=== PATIENT | male | born 1945 | race Caucasian/White ===

== ENCOUNTER 2021-06-14 08:30 | Observation (INO) | payer OTHER, SELFPAY ==
[2021-06-14] VITALS (14 sets, daily range): BP systolic 133–180; BP diastolic 66–105; PULSE 57–96; RESP 14–20; TEMP 36.2–37; O2SAT 93–97; BMI 32.3
--- NOTE | 2021-06-14 08:40 | RAD_ITS ---
STUDY: X-RAY CHEST REASON FOR EXAM: Male, 75 years old. Shortness of breath. Syncope with nausea and vomiting. TECHNIQUE: Single AP portable view of the chest. COMPARISON: None. FINDINGS: EKG electrodes are seen. Possible 4.4 cm x 2.8 cm rounded nodule in the medial aspect of the right upper lobe. There is no demonstrated pleural abnormality. There is borderline cardiomegaly. Normal mediastinum and earle. Normal visualized pulmonary arteries. There is atherosclerotic calcification of the aortic arch with tortuosity. There are diffuse degenerative changes of the visualized thoracic spine. Normal visualized ribs, clavicles, and shoulders. There is no demonstrated abnormality of the visualized soft tissue structures of the upper abdomen. RAD/Chest 1 View (Portable) IMPRESSION: Proximal nodular density in the medial aspect of the right upper lobe. Electronically Signed: Kavon Bentley MD at 9:08 EST , Service support ,
--- NOTE | 2021-06-14 08:40 | EKG12_ITS ---
Test Reason : DIZZINESS Blood Pressure : / mmHG Vent. Rate : 090 BPM Atrial Rate : 091 BPM P-R Int : 204 ms QRS Dur : 096 ms QT Int : 416 ms P-R-T Axes : 059 -19 048 degrees QTc Int : 508 ms Normal sinus rhythm with PVC's Prolonged QT Abnormal ECG Confirmed by GABRIELA MAYORGA, ABRIL ([id number]), mapping editor ZAINAB KHAN ([id number]) on 06/17/2021 11:29:39 AM Referred By: Confirmed By:ABRIL OCHOA MD
--- NOTE | 2021-06-14 08:41 | CT_ITS ---
STUDY: CT BRAIN WITHOUT CONTRAST REASON FOR EXAM: Male, 75 years old. Dizziness. Nausea and vomiting. RADIATION DOSAGE (If Supplied By Facility): CTDIvol = ( 44.99 ) mGy, DLP = ( 829.85 ) mGycm TECHNIQUE: Transaxial CT imaging of the brain was performed without administration of intravenous contrast material. Individualized dose optimization techniques were used for this CT. COMPARISON: No relevant priors. FINDINGS: Normal soft tissue structures. Normal calvarium. There is mild cerebral atrophy with widening of the extra-axial spaces and ventricular dilatation. Normal white matter tracts of the cerebral hemispheres. Normal basal ganglia and thalami. Normal brainstem. Normal cerebellum. There is no intracranial hemorrhage. There are no findings of an acute ischemic infarction. Atherosclerotic plaque formation of the vertebral arteries as well as the basilar artery and cavernous portions of the internal carotid arteries bilaterally. Normal visualized paranasal sinuses. CT/Brain/Head without Contrast IMPRESSION: Chronic involutional changes of the brain. Electronically Signed: Kavon Bentley MD at 9:06 EST , Service support ,
[2021-06-14] MEDS: Ondansetron 4 MG/2 ML Vial IV ×2 (08:42→12:07)
--- NOTE | 2021-06-14 08:42 | EX.ED.DYSGE1 ---
HPI History of Present Illness Chief Complaint: Dizziness Informant: patient Narrative Narrative: 75-year-old male presenting with dizziness, nausea, vomiting. Patient states he woke up this morning and felt lightheaded and dizzy. He states he had unsteady gait and felt off balance. He states he stayed on the couch for 1 hour and started to feel slightly better. He then drove himself to his primary care physician's office for a routine scheduled visit. He states he had trouble getting into the primary care physician's office and had to hold on to keep from falling. In the waiting room he began vomiting and had several episodes of nonbloody emesis. EMS was called and patient was transported to the emergency department for evaluation. He denies chest pain or shortness of breath. Denies numbness or weakness. Denies vertigo. Denies vision or speech changes. Denies headache. Denies abdominal pain. He is vaccinated for Covid. Prior similar symptoms: No Recent Illness/Hospitalization: No PFSH PFS Medical History (Updated 06/14/21 @ 10:[address] Mariola Pereira MD) Cataract GERD (gastroesophageal reflux disease) Gout Hernia Hyperlipidemia Hypertension Kidney disease Prostate cancer Home Medications amlodipine 10 mg PO DAILY 06/14/21 [History Last Taken Unknown] losartan 100 mg PO DAILY 06/14/21 [History Last Taken Unknown] pantoprazole 40 mg PO DAILY 06/14/21 [History Last Taken Unknown] pravastatin 20 mg PO QHS 06/14/21 [History Last Taken Unknown] terazosin 10 mg PO QHS 06/14/21 [History Last Taken Unknown] Allergy/AdvReac Type Severity Reaction Status Date / Time atorvastatin Allergy muscle Verified 06/14/21 08:54 aches Surgical History 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 Social History Smoking Status: Never smoker ROS ROS ED Constitutional Constitutional ED: Denies fever(s) Eyes Eyes: Denies change in vision ENT ENT ED: Denies rhinorrhea or sore throat Cardiovascular Cardiovascular: Denies chest pain or palpitations Respiratory/Chest Respiratory/Chest: Denies cough or dyspnea Gastrointestinal Gastrointestinal: Reports nausea and vomiting; Denies abdominal pain or diarrhea Genitourinary Genitourinary ED: Denies dysuria Musculoskeletal Musculoskeletal: Denies myalgias Integumentary Denies rash Neurologic Neurologic: Denies headache(s) or weakness Psychiatric Psychiatric: Denies suicidal thoughts EXAM Physical Exam Const Vital Signs: 06/14/21 08:32 06/14/21 08:56 06/14/21 08:57 Temperature 97.2 F L 97.2 F L Temperature Source Temporal Temporal Pulse Rate 94 88 88 Respiratory Rate 20 H 18 Respiratory Effort Respiratory Pattern Blood Pressure 180/103 H 177/105 H 177/105 H Blood Pressure Mean 128 129 129 Pulse Ox 95 95 95 Oxygen Delivery Method Room Air Room Air Room Air 06/14/21 09:08 06/14/21 09:40 06/14/21 09:43 Temperature 97.1 F L Temperature Source Temporal Pulse Rate 79 79 Respiratory Rate 14 14 Respiratory Effort Normal Respiratory Pattern Normal Blood Pressure 179/82 H 179/82 H Blood Pressure Mean 114 114 Pulse Ox 93 93 Oxygen Delivery Method Room Air Room Air Positive well nourished and well developed General Appearance ED: well developed HEENT Reports normocephalic and head/scalp atraumatic Eyes PERRL and EOMs intact bilaterally Neck supple General: Negative for tenderness Chest Wall inspection of chest normal Resp normal respiratory effort and clear to auscultation bilaterally Cardio regular rate and regular rhythm GI non-tender and non-distended Palpation: soft; Negative for guarding or rebound tenderness present no CVA tenderness Extremity normal to inspection Neuro oriented x3, CN's II-XII intact bilaterally and no sensory deficits noted Sensorium / Orientation: alert Motor Exam: strength 5/5 throughout Psych mental status grossly normal Skin no rashes or lesions noted MDM MDM MDM Narrative Medical decision making narrative: EKG is sinus rhythm rate of 90 with no acute ischemic changes. Labs were reviewed. Creatinine is 1.59 with no old for comparison. Troponin is negative. Chest x-ray read by myself and radiology shows nodular density right upper lobe. CT head shows no acute process. Patient was given IV fluids, Zofran. His nausea has improved. He denies a spinning sensation but continues to feel dizzy and was given meclizine. Discussed with hospitalist for observation. Lab Data Attestation: I reviewed the patient's lab results. Labs: Laboratory Results - last 24 hr 06/14/21 06/14/21 08:35 08:35 WBC 4.6 RBC 4.53 L Hgb 12.8 L Hct 38.5 L MCV 85.0 MCH 28.3 MCHC 33.2 RDW Std Deviation 41.1 RDW Coeff of Yessi 13.2 Plt Count 80 L MPV 10.5 Immature Gran % (Auto) 0.200 Neut % (Auto) 60.3 Lymph % (Auto) 31.5 Larue % (Auto) 6.9 Eos % (Auto) 0.7 Baso % (Auto) 0.4 Absolute Neuts (auto) 2.8 Absolute Lymphs (auto) 1.45 Nucleated RBC % 0 Sodium 136 Potassium 3.5 Chloride 102 Carbon Dioxide 24.0 Anion Gap 10 BUN 19 H Creatinine 1.59 H Estim Creat Clear Calc 40.17 Est GFR (MDRD) Af Amer 55 L Est GFR (MDRD) Non-Af 45 L BUN/Creatinine Ratio 11.9 Glucose 225 H Calcium 9.1 Total Bilirubin 0.80 AST 15 ALT 15 L Alkaline Phosphatase 98 Troponin I High Sens 11 Total Protein 7.6 Albumin 3.6 Globulin 4.0 Albumin/Globulin Ratio 0.9 Radiography Chest X-Ray - ED: 1 View, Read by ED Physician and Read by Radiologist Diagnostic Testing: Clinical Impression(s) from Imaging Studies Chest X-Ray 06/14/21 08:40 IMPRESSION: Proximal nodular density in the medial aspect of the right upper lobe. Electronically Signed: Kavon Bentley MD at 9:08 EST , Service support , Brain CT 06/14/21 08:41 IMPRESSION: Chronic involutional changes of the brain. Electronically Signed: Kavon Bentley MD at 9:06 EST , Service support , EKG Initial EKG: Attestation: I personally reviewed and interpreted this EKG as follows: Interpretation: Sinus Rhythm and No Acute Injury Pattern Discharge Plan Triage Chief Complaint: Dizziness ED Provider: Mariola Pereira Dx/Rx/DC Orders Clinical Impression: Near syncope Prescriptions: No Action terazosin 10 mg Tablet 10 mg PO QHS RF: 0 amlodipine 10 mg Tablet 10 mg PO DAILY RF: 0 pantoprazole 40 mg Tablet,Delayed Release (Dr/Ec) 40 mg PO DAILY RF: 0 pravastatin 20 mg Tablet 20 mg PO QHS RF: 0 losartan 100 mg Tablet 100 mg PO DAILY RF: 0 Primary Care Provider: Antonio Ramírez Referrals: Antonio Ramírez MD [Primary Care Provider] - Disposition Disposition: Acute Care [facility]
[2021-06-14] MEDS: 0.9% Normal Saline 1,000 ML 1000 ML IV (08:44)
[2021-06-14 08:48] LABS: Absolute Lymphocyte Count 1.45 X10^3/uL (0.83-4.51); Absolute Neutrophil Count 2.8 X10^3/uL (2.0-7.7); Basophil# 0.02 X10^3/uL; Basophil% 0.4 % (0-1); Eosinophil# 0.03 X10^3/uL; Eosinophils% 0.7 % (0-5); Hematocrit 38.5 % (40-54); Hemoglobin 12.8 g/dL (13.0-16.5); Lymphocyte # 1.45 X10^3/ul (0.83-4.51); Lymphocyte % 31.5 % (19-41); Mean Corp Hgb Conc 33.2 g/dL (32-36); Mean Corpuscular Hgb 28.3 pg (27.0-32.0); Mean Platelet Vol. 10.5 fl (6.2-12.0); Monocyte# 0.32 X10^3/uL; Monocyte% 6.9 % (0-10); NRBC Flagged by Analyzer 0 % (0-5); Neutrophil # 2.78 X10^3/uL (2.7-7.7); Neutrophil % 60.3 % (47-70); POSITIVE COUNT YES; Platelet Count 80 K/mm3 (150-450); RBC Distribution Width CV 13.2 % (11.6-14.6); RBC Distribution Width SD 41.1 fl (35.1-43.9); Red Blood Count 4.53 M/mm3 (4.6-6.2); White Blood Count 4.6 K/mm3 (4.4-11.0)
[2021-06-14 09:13] LABS: ALB/GLOB Ratio 0.9 RATIO (0.9-2.4); AST(SGOT) 15 U/L (15-37); Alanine Aminotransfer ALT/SGPT 15 U/L (16-61); Albumin, Serum 3.6 g/dL (3.2-5.0); Alkaline Phosphatase 98 U/L (45-117); Anion Gap 10 (5-15); BUN 19 mg/dL (7-18); BUN/Creat Ratio 11.9 RATIO (10-20); Calcium,Total 9.1 mg/dL (8.5-10.1); Chloride 102 mmol/L (98-107); Creatinine, Serum 1.59 mg/dL (0.70-1.30); EST Glomerular Filtration Rate 45 mL/min (>60); Est Glom Filt Rate - Afr Amer 55 mL/min (>60); Estimated Creatinine Clearance 40.17 ml/min; Glucose 225 mg/dL (74-106); Potassium 3.5 mmol/L (3.5-5.1); Protein, Total 7.6 g/dL (6.4-8.2); Sodium Level 136 mmol/L (136-145); Troponin-I HS 11 pg/mL (3.0-78.0)
[2021-06-14 09:17] LABS: Differential Indicated SCAN CRITERIA MET
[2021-06-14] MEDS: Meclizine 12.5 MG Tablet PO ×2 (09:52→14:37)
--- NOTE | 2021-06-14 11:49 | MRI_ITS ---
STUDY: MRA NECK WITH AND WITHOUT CONTRAST REASON FOR EXAM: Male, 75 years old. vertigo TECHNIQUE: 3-D oyhy-xi-ungwip (TOF) imaging was performed in an 1.5 T MRI scanner. 20ml Dotarem via IV was administered for the contrast enhanced images. COMPARISON: None. FINDINGS: RIGHT CAROTID ARTERIES: Normal right common carotid artery (CCA). Normal right common carotid bulb. Normal origin of the right internal carotid (ICA) artery without a hemodynamically significant stenosis. Normal visualized cervical portion of the right internal carotid artery. Normal origin of the right external carotid artery (ECA). LEFT CAROTID ARTERIES: Normal left common carotid artery (CCA). Normal left common carotid bulb. Normal origin of the left internal carotid (ICA) artery without a hemodynamically significant stenosis. Normal visualized cervical portion of the left internal carotid artery. Normal origin of the left external carotid artery (ECA). VERTEBRAL ARTERIES: Normal antegrade flow within the bilateral vertebral artery without a hemodynamically significant stenosis. MRI/MRA Neck WITH and W/O Contrast IMPRESSION: Normal bilateral cervical carotid and vertebral arteries. Electronically Signed: Jovanny Cross MD at 17:11 EST Tel , Service support ,
--- NOTE | 2021-06-14 11:49 | MRI_ITS ---
STUDY: MRI BRAIN WITHOUT CONTRAST REASON FOR EXAM: Male, 75 years old. Vertigo TECHNIQUE: Standardized multiplanar fat and water weighted pulse sequences were obtained. Noncontrast imaging obtained. COMPARISON: CT examination of the head dated 06/14/2021 FINDINGS: HEMISPHERES: 1. The cerebral parenchyma, ventricular system, subarachnoid spaces have normal configuration and density. There are mild involutional changes. Mild scattered chronic microvascular deep white matter disease is also noted. 2. No intraparenchymal mass, hemorrhage, or acute territorial infarct. CEREBELLUM - BRAINSTEM: The cerebellum, brainstem, basilar and suprasellar cisterns have normal appearance. No Chiari malformation. There is a prominent cisterna magna. PITUITARY: Infundibulum and pituitary have normal configuration. Midline structures appear normal. CSF SPACES: Appropriate for age. No hydrocephalus. Basal cisterns are patent. VESSELS: 1. Flow-voids are present in the vessels at the skull base. ORBITS AND PARANASAL SINUSES: 1. Both globes, extraocular muscles, optic nerves and retrobulbar fat appear unremarkable. 2. Paranasal sinuses are clear. BONY ELEMENTS: Bony elements of the cranial vault, facial skeleton and skull base have normal appearance. SCALP AND SOFT TISSUES: Normal appearance of the soft tissues of the scalp and the visualized face OTHER: None MRI/Brain without Contrast IMPRESSION: 1. There are mild involutional changes and chronic microvascular deep white matter disease. 2. No intracranial mass, hemorrhage, or acute territorial infarct. 3. No radiographically significant sinus disease. Electronically Signed: Jovanny Elias MD at 17:22 EST Tel , Service support ,
--- NOTE | 2021-06-14 11:51 | ECHOD_ITS ---
Reason For Study: TIA/CVA Procedure This was a 2D Doppler, Color Flow transthoracic echocardiogram. Exam performed portable in patient room. Left Ventricle Mild concentric left ventricular hypertrophy. The estimated ejection fraction is 50-55 %. Right Ventricle Normal right ventricle. Normal systolic function. Atria Normal left atrium. Normal right atrium. Intact atrial septum. Mitral Valve The mitral valve is structurally normal. No prolapse or stenosis seen. Mild (1+) mitral valve insufficiency. Tricuspid Valve Normal tricuspid valve. Mild tricuspid valve insufficiency. Aortic Valve Normal aortic valve. Pulmonic Valve The pulmonic valve is not well visualized. Great Vessels Normal aortic root. Pericardium/Pleural No pericardial effusion. Medication Performed a rapid injection of agitated mix of 9 cc saline and 1cc air to assess for atrial septal defect. MMode/2D Measurements & Calculations LVIDd: 5.2 cm IVSd: 1.3 cm Ao root diam: 3.0 cm LVIDs: 3.9 cm LVPWd: 1.2 cm RVDd: 4.3 cm FS: 25.2 % LAV(MOD-bp): 62.5 ml LVAd ap4: 36.8 cm2 SV(MOD-sp4): 64.5 ml LAV(MOD-bp) Indexed: 28.5 ml/m2 LVLd ap4: 9.5 cm LAV(MOD-sp2): 53.4 ml EDV(MOD-sp4): 117.9 ml LAV(MOD-sp4): 70.7 ml EDV(sp4-el): 121.0 ml LVAs ap4: 22.7 cm2 LVLs ap4: 8.0 cm ESV(MOD-sp4): 53.4 ml ESV(sp4-el): 54.2 ml EF(MOD-sp4): 54.7 % EF(sp4-el): 55.2 % SV(sp4-el): 66.7 ml LA A4 area: 24.3 cm2 LA dimension(2D): 4.7 cm RA A4 area: 17.4 cm2 Doppler Measurements & Calculations MV E max henrique: 76.5 cm/sec Lat Peak E' Henrique: 10.5 cm/sec Med Peak E' Henrique: 5.7 cm/sec MV A max henrique: 115.2 cm/sec E/E' lat: 7.3 E/E' med: 13.3 MV E/A: 0.66 Ao V2 max: 170.8 cm/sec LV V1 max: 124.2 cm/sec PA V2 max: 114.3 cm/sec Ao max P.7 mmHg LV V1 max P.2 mmHg Ao V2 mean: 112.1 cm/sec Ao mean P.7 mmHg Ao V2 VTI: 37.8 cm TR max henrique: 300.7 cm/sec TR max P.2 mmHg ECHO/Echo Complete Interpretation Summary The estimated ejection fraction is 50-55 %. Grade # I Diastolic dysfunction Mild MR Mild TR, RVSP calculated 41 mmhg No prior echo to compare Ordering Physician: Julisa Velazquez Referring Physician: Antonio Ramírez Performed By: Adriana Vicente, JOSHUA, RVT
--- NOTE | 2021-06-14 11:51 | MRI_ITS ---
STUDY: MRA OF THE HEAD WITHOUT CONTRAST REASON FOR EXAM: Male, 75 years old. vertigo TECHNIQUE: 3-D ursy-nv-lzmeum (TOF) imaging was performed with MIPs. The study was performed unenhanced. COMPARISON: None. FINDINGS: PETROUS AND CAVERNOUS CAROTID: Normal bilateral petrous carotid arteries. Normal right cavernous carotid artery with a normal supraclinoid bifurcation. Normal left cavernous carotid artery with a normal supraclinoid bifurcation. ANTERIOR CEREBRAL ARTERY: Normal right A1 segments of the anterior cerebral artery. Normal left A1 segments of the anterior cerebral artery. Normal intact anterior communicating artery (ACOM). Normal bilateral A2 segments of the anterior cerebral arteries. MIDDLE CEREBRAL ARTERY: 1. Normal right M1 and M2 segments of the middle cerebral arteries, with a normal M1 bifurcation. 2. Normal left M1 and M2 segments of the middle cerebral arteries, with a normal M1 bifurcation. POSTERIOR COMMUNICATING ARTERY: 1. RIGHT posterior communicating artery is not well visualized. 2. LEFT posterior communicating artery is not well visualized. VERTEBRAL BASILAR: There is a dominant right vertebral artery. There is mild luminal irregularity of the V4 segment of the left vertebral artery with focal areas of mild narrowing suspected. No occlusion noted. Normal basilar artery with a normal basilar bifurcation. The visualized bilateral superior cerebellar (SCA) arteries are normal. POSTERIOR CEREBRAL ARTERY: Normal bilateral P1, P2 and visualized P3 segments of the posterior cerebral arteries. There is no demonstrated aneurysm of the [place] of [place]. There is no major vessel occlusion or hemodynamically significant stenosis. There is no demonstrated abnormality of the visualized brain. MRI/MRA Head ONLY without Contrast IMPRESSION: 1. Normal MRA appearance of the internal carotid arteries, anterior and middle cerebral arteries bilaterally. 2. There is a dominant right vertebral artery and a short segment moderate narrowing involving the V4 segment of the left vertebral artery. No evidence of occlusion. 3. No other evidence of stenosis occlusion or filling defects involving the intracranial circulation. No evidence of LVO. 4. No aneurysmal dilatation noted. Electronically Signed: Jovanny Elias MD at 17:31 EST Tel , Service support ,
[2021-06-14 12:01] LABS: Bacteria 0 SEEN /hpf (None Seen); Mucous, Urine 0 SEEN /hpf (<or=2+); Squamous Epithelial Cells - UA 0 SEEN /hpf (0-5); White Blood Cells 0 SEEN /hpf (0-5)
[2021-06-14] MEDS: 0.9% Saline Lock 10 ML Syringe IV (12:07)
[2021-06-14 12:10] LABS: Color, Urine Yellow (Yellow); Glucose, Dipstick Normal (Normal); Ketone-Dipstick Negative (Negative); Leukocyte Esterase-Dipstick Negative /ul (Negative); Nitrite-Dipstick Negative (Negative); Occult Blood-Urine 50 /ul (Negative); Protein-Dipstick 100 mg/dl (Negative); Specific Gravity, Urine 1.015 (1.002-1.030); Urine Bilirubin Dipstick Negative (Negative); Urine Clarity Clear (Clear); Urine Urobilinogen Normal (Normal)
[2021-06-14 12:22] LABS: Red Blood Cells-Urine 0-5 SEEN /hpf (0-5)
[2021-06-14 12:29] LABS: Thyroid Stim Hormone (TSH) 4.72 uIU/mL (0.358-3.74)
--- NOTE | 2021-06-14 13:21 | HP.PCM.HOS_ITS ---
Documented by User: Kelvin CHRISTOPHER 06/14/21 16:18 HPI - General General Date of Admission: 06/14/21 HPI Narrative MALVIN IZQUIERDO is a 75-year-old male who presented to the ED at [facility] on 06/17/2021 with a chief complaint of dizziness and near syncope. Patient reports that he awoke this morning to use the restroom and felt dizzy at which point he completed his business in the restroom and returned to bed. Patient went to report to his PCP appointment earlier today and again felt dizzy getting out of his car and reports almost passing out, patient was advised by his PCP to report to the ED for evaluation. Patient denies any loss of consciousness or fully passing out. Patient currently reports feeling slightly nauseous due to his dizziness, but is without other symptoms. Patient denies upper and lower extremity weakness/numbness, denies slurred speech or facial droop. Of note, patient's was diagnosed with asymptomatic COVID-19 infection 10 days ago, for which she quarantine and had no acute problems. Patient and patient's have both been vaccinated against COVID-19. Rapid Covid obtained in the ED was negative. Vital signs obtained in the ED are temperature of 97.2 ?F, HR of 75, BP of 169/81, RR of 16 and patient is currently satting 97% on room air. Chest x-ray demonstrated proximal nodular density in the medial aspect of the right upper lobe, but was without any acute findings. Brain CT only showed chronic involutional changes of the brain and was without any acute findings. CBC demonstrates a thrombocytopenia with platelets at 87,000, but is otherwise unremarkable. BMP shows a mildly elevated creatinine at 1.5 and a BUN of 19, but is otherwise unremarkable. TSH is elevated at 4.7. UA is unremarkable. Patient was given fluids and antinausea medication in the ED. [facility] Medical History (Updated 06/14/21 @ 16:09 by Kelvin CHRISTOPHER) Cataract GERD (gastroesophageal reflux disease) Gout Hernia Hyperlipidemia Hypertension Kidney disease Prostate cancer Home Medications amlodipine 10 mg PO DAILY 06/14/21 [History Last Taken Unknown] losartan 100 mg PO DAILY 06/14/21 [History Last Taken Unknown] pantoprazole 40 mg PO DAILY 06/14/21 [History Last Taken Unknown] pravastatin 20 mg PO QHS 06/14/21 [History Last Taken Unknown] terazosin 10 mg PO QHS 06/14/21 [History Last Taken Unknown] Allergy/AdvReac Type Severity Reaction Status Date / Time atorvastatin Allergy muscle Verified 06/14/21 08:54 aches Family History (Updated 06/14/21 @ 13:23 by Kelvin CHRISTOPHER) Mother Cancer Father , No known Paternal medical history to include CVA, CAD, DM2, HTN or Cancer No problems noted. 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 Social History (Updated 06/14/21 @ 13:24 by Kelvin CHRISTOPHER) Smoking Status: Never smoker alcohol intake: never substance use type: does not use ROS Constitutional Constitutional: Denies anorexia, change in weight, chills, fatigue, fever(s), malaise, night sweats, weakness or other Eyes Eyes: Denies blurry vision, change in eye color, change in vision, discharge from eye(s), double vision, erythema, eye pain, loss of vision or other ENT HEENT: Denies abnormal hearing, dysphagia, ear pain, epistaxis, headache(s), hearing loss, nasal congestion, nasal discharge, post nasal drip, sinus pressure, sore throat or other Cardiovascular Cardiovascular: Denies chest pain, claudication, dyspnea on exertion, edema, lightheadedness, orthopnea, palpitations, paroxysmal nocturnal dyspnea, rapid heart rate, syncope or other Respiratory/Chest Respiratory/Chest: Denies cough, dyspnea, excessive phlegm production, hemoptysis, productive cough, shortness of breath at rest, shortness of breath with exertion, wheezing or other Gastrointestinal Gastrointestinal: Reports nausea; Denies abdominal pain, coffee ground emesis, constipation, diarrhea, dyspepsia, hematemesis, hematochezia, loose stools, melena, vomiting or other Genitourinary Genitourinary: Denies burning urination, difficulty urinating, dysuria, hematuria, nocturia, urinary frequency, urinary hesitancy, urinary incontinence, urinary urgency or other Musculoskeletal Musculoskeletal: Denies arthralgias, back pain, joint pain, joint stiffness, joint swelling, myalgias, neck pain or other Neurologic Neurologic: Reports syncope; Denies abnormal gait, abnormal speech, confusion, disequilibrium, dizziness, focal weakness, headache(s), numbness, paresthesias, seizure-like activity, seizures, tingling, tremor(s) or other Psychiatric Psychiatric: Denies anxiety, depression, homicidal ideation, suicidal ideation or other Endocrine Endocrinology: Denies change in body appearance, cold intolerance, excessive sweating, heat intolerance, polydipsia, polyuria or other Hematologic/Lymphatic Hematologic/Lymphatic: Denies anemia, easy bleeding, easy bruising, lymphadenopathy or other Allergic/Immunologic Allergic/Immunologic: Denies rhinitis, hives, eczemia, asthma or other Vital Signs Vital Signs Vital Signs: 06/14/21 08:32 06/14/21 08:56 06/14/21 08:57 Temperature 97.2 F L 97.2 F L Temperature Source Temporal Temporal Pulse Rate 94 88 88 Respiratory Rate 20 H 18 Respiratory Effort Respiratory Pattern Blood Pressure 180/103 H 177/105 H 177/105 H Blood Pressure Mean 128 129 129 Blood Pressure Source Blood Pressure Position Blood Pressure Location Pulse Ox 95 95 95 Oxygen Delivery Method Room Air Room Air Room Air 06/14/21 09:08 06/14/21 09:40 06/14/21 09:43 Temperature 97.1 F L Temperature Source Temporal Pulse Rate 79 79 Respiratory Rate 14 14 Respiratory Effort Normal Respiratory Pattern Normal Blood Pressure 179/82 H 179/82 H Blood Pressure Mean 114 114 Blood Pressure Source Blood Pressure Position Blood Pressure Location Pulse Ox 93 93 Oxygen Delivery Method Room Air Room Air 06/14/21 11:18 06/14/21 12:26 06/14/21 12:30 Temperature 97.1 F L 97.2 F L Temperature Source Temporal Temporal Pulse Rate 61 71 75 Respiratory Rate 18 16 Respiratory Effort Respiratory Pattern Blood Pressure 144/72 H 169/81 H Blood Pressure Mean 96 110 Blood Pressure Source Monitor Blood Pressure Position Sitting Blood Pressure Location Left Arm Pulse Ox 93 97 Oxygen Delivery Method Room Air Room Air Weight Weight: 225 lb Body Mass Index (BMI) 32.3 Physical Exam Const alert and oriented x3 General Appearance: cooperative HEENT normocephalic, head/scalp atraumatic and hearing grossly normal bilaterally Eyes PERRL, EOMs intact bilaterally and conjunctivae normal Neck no lymphadenopathy, supple and no JVD Resp normal respiratory effort, no retractions, no use of accessory muscles and clear to auscultation bilaterally Cardio regular rate, regular rhythm, no murmurs and no JVD GI normal to inspection, nondistended, normoactive bowel sounds, soft to palpation and non-tender Extremity normal to inspection, full ROM and no clubbing, cyanosis or edema Peripheral Pulses: Yes pulses 2+ throughout Skin no rashes or lesions noted, no wounds, skin turgor normal and no jaundice Neuro CN's II-XII intact bilaterally Psych affect normal Results Lab / Micro Data Result Diagrams: 06/14/21 08:35 06/14/21 08:35 Labs: Laboratory Results - last 24 hr 06/14/21 08:35: WBC 4.6, RBC 4.53 L, Hgb 12.8 L, Hct 38.5 L, MCV 85.0, MCH 28.3, MCHC 33.2, RDW Std Deviation 41.1, RDW Coeff of Yessi 13.2, Plt Count 80 L, MPV 10.5, Immature Gran % (Auto) 0.200, Neut % (Auto) 60.3, Lymph % (Auto) 31.5, [place] % (Auto) 6.9, Eos % (Auto) 0.7, Baso % (Auto) 0.4, Absolute Neuts (auto) 2.8, Absolute Lymphs (auto) 1.45, Nucleated RBC % 0 06/14/21 08:35: Sodium 136, Potassium 3.5, Chloride 102, Carbon Dioxide 24.0, Anion Gap 10, BUN 19 H, Creatinine 1.59 H, Estim Creat Clear Calc 40.17, Est GFR (MDRD) Af Amer 55 L, Est GFR (MDRD) Non-Af 45 L, BUN/Creatinine Ratio 11.9, Glucose 225 H, Calcium 9.1, Total Bilirubin 0.80, AST 15, ALT 15 L, Alkaline Phosphatase 98, Troponin I High Sens 11, Total Protein 7.6, Albumin 3.6, Globulin 4.0, Albumin/Globulin Ratio 0.9 06/14/21 08:35: TSH 4.72 H 06/14/21 11:43: Urine Color Yellow, Urine Clarity Clear, Urine pH 7.0, Ur Specific [place] 1.015, Urine Protein 100 H, Urine Glucose (UA) Normal, Urine Ketones Negative, Urine Occult Blood 50 H, Urine Nitrite Negative, Urine Bilirubin Negative, Urine Urobilinogen Normal, Ur Leukocyte Esterase Negative, Urine RBC 0-5 SEEN, Urine WBC 0 SEEN, Ur Squamous Epith Cells 0 SEEN, Urine Bacteria 0 SEEN, Urine Mucus 0 SEEN Micro: Microbiology 06/14/21 08:50 Nasal Secretion SARS-CoV-2 Antigen (Rapid) - Final Radiology Impression Chest X-Ray 06/14/21 08:40 IMPRESSION: Proximal nodular density in the medial aspect of the right upper lobe. Electronically Signed: Kavon Bentley MD at 9:08 EST , Service support , Brain CT 06/14/21 08:41 IMPRESSION: Chronic involutional changes of the brain. Electronically Signed: Kaovn Bentley MD at 9:06 EST , Service support , Assessment & Plan Assessment/Plan (1) Near syncope: (2) Dizziness: PLAN: Patient is a 75-year-old male presents to the ED at [facility] on 06/14/2021 with a chief complaint of dizziness and near syncope. Patient will be admitted for stroke rule out. 1) strokelike symptoms Patient presents with a 1 day history of dizzy spells and near syncopal episodes. Patient denies any loss of consciousness or fully passing out. Patient denies and does not demonstrate any focal neurological deficits on my exam. Brain CT did not demonstrate any acute findings. Plan; admit to PCU, brain MRI ordered, head and neck MRI ordered, echocardiogram ordered, magnesium ordered, TSH ordered, CBC and BMP in a.m., will order SOC consult if imaging comes back positive for stroke, heart healthy diet ordered, elevate head above bed 30 degrees, NIH stroke scale every 4 hours, case management consult ordered, PT/OT eval ordered, allow for permissive hypertension, as needed meclizine ordered. 2) COVID-19 exposure Patient's was recently diagnosed with asymptomatic COVID-19 infection. Patients completed a 10-day quarantine without any complications. Both patient and patient's have been fully vaccinated against COVID-19. Rapid Covid obtained in the ED was negative. Covid PCR pending. 3) HTN Allow for permissive hypertension, hold home BP regimen, as needed hydralazine and labetalol ordered. 4) GERD Continue PPI. 5) BPH Continue Cardura. DVT prophylaxis - low risk, not indicated CODE STATUS: Full code Vaccination status: Patient and close contacts start () has been fully vaccinated for COVID-19. Patient seen by Kelvin Fish PA-C, under the supervision of Dr. Velazquez. Documented by User: Dr. Julisa Velazquez MD 06/14/21 18:29 HPI - General General Date of Admission: 06/14/21 [facility] Medical History (Updated 06/14/21 @ 16:09 by Kelvin CHRISTOPHER) Cataract GERD (gastroesophageal reflux disease) Gout Hernia Hyperlipidemia Hypertension Kidney disease Prostate cancer Home Medications amlodipine 10 mg PO DAILY 06/14/21 [History Last Taken Unknown] losartan 100 mg PO DAILY 06/14/21 [History Last Taken Unknown] pantoprazole 40 mg PO DAILY 06/14/21 [History Last Taken Unknown] pravastatin 20 mg PO QHS 06/14/21 [History Last Taken Unknown] terazosin 10 mg PO QHS 06/14/21 [History Last Taken Unknown] Allergy/AdvReac Type Severity Reaction Status Date / Time atorvastatin Allergy muscle Verified 06/14/21 08:54 aches Family History (Updated 06/14/21 @ 13:23 by Kelvin CHRISTOPHER) Mother Cancer Father , No known Paternal medical history to include CVA, CAD, DM2, HTN or Cancer No problems noted. 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 I have independently interviewed and examined the patient and reviewed pertinent historical, laboratory, and other data. Please refer to CANDI Fink's note for his patient's presentation, findings, and recommendations. I have reviewed and his note and concur with his documentation 75-year-old male with past medical history of hypertension who comes in with complaints of dizziness ongoing for 1 days. Patient woke up today with dizziness. He felt unsteady. Denied any ringing in his ears. Denied any history of stroke. He got nauseous when he got here to the ED. Vitals showed uncontrolled blood pressure, 179/82 His admitting blood work was unremarkable except for creatinine 1.59. Unsure of his previous baseline Physical Exam: Gen: Comfortable, not pale, not jaundiced CVS:HS I +II, regular, no murmurs RESP: Diminished at lung bases GI: BS present and normal, soft, nontender, no palpable organs EXT:No edema [employer]SM[employer]ATION [employer]ER: Grossly intact ASSESSMENT: 1. Dizziness, rule out acute stroke, possible BPPV 2. Uncontrolled hypertension 3. CHRISTIANO versus CKD Plan: Admit to PCU, rule out stroke with MRI head, MRA head and neck Continue on aspirin, meclizine as needed Visit Charges OBSV E&M: 33994 Initial observation care L3
[2021-06-14 15:55] LABS: Bedside Glucose 233 mg/dL (70-110)
[2021-06-14] MEDS: Doxazosin 4 MG Tablet 8 MG PO (22:23)
[2021-06-14] MEDS: Pravastatin 20 MG Tablet PO (22:23)
[2021-06-15 02:29] VITALS: BP 164/78; PULSE 59; RESP 18; TEMP 36.9; O2SAT 92
[2021-06-15] MEDS: Meclizine 12.5 MG Tablet PO (02:31)
[2021-06-15 03:00] VITALS: PULSE 48
[2021-06-15 06:01] LABS: Absolute Lymphocyte Count 1.99 X10^3/uL (0.83-4.51); Absolute Neutrophil Count 3.1 X10^3/uL (2.0-7.7); Basophil# 0.02 X10^3/uL; Basophil% 0.4 % (0-1); Eosinophil# 0.07 X10^3/uL; Eosinophils% 1.3 % (0-5); Hematocrit 33.5 % (40-54); Hemoglobin 11.1 g/dL (13.0-16.5); Lymphocyte # 1.99 X10^3/ul (0.83-4.51); Lymphocyte % 35.7 % (19-41); Mean Corp Hgb Conc 33.1 g/dL (32-36); Mean Corpuscular Hgb 28.6 pg (27.0-32.0); Mean Corpuscular Volume 86.3 fL (80-94); Monocyte# 0.41 X10^3/uL; Monocyte% 7.3 % (0-10); NRBC Flagged by Analyzer 0 % (0-5); Neutrophil # 3.07 X10^3/uL (2.7-7.7); Neutrophil % 54.9 % (47-70); POSITIVE COUNT YES; Platelet Count 80 K/mm3 (150-450); RBC Distribution Width CV 13.4 % (11.6-14.6); RBC Distribution Width SD 41.7 fl (35.1-43.9); Red Blood Count 3.88 M/mm3 (4.6-6.2); White Blood Count 5.6 K/mm3 (4.4-11.0)
[2021-06-15 06:46] LABS: ALB/GLOB Ratio 0.8 RATIO (0.9-2.4); AST(SGOT) 12 U/L (15-37); Alanine Aminotransfer ALT/SGPT 12 U/L (16-61); Albumin, Serum 2.7 g/dL (3.2-5.0); Alkaline Phosphatase 72 U/L (45-117); Anion Gap 5 (5-15); BUN 16 mg/dL (7-18); BUN/Creat Ratio 11.2 RATIO (10-20); Calcium,Total 8.4 mg/dL (8.5-10.1); Chloride 103 mmol/L (98-107); Cholesterol 110 mg/dL (200); Creatinine, Serum 1.43 mg/dL (0.70-1.30); EST Glomerular Filtration Rate 51 mL/min (>60); Est Glom Filt Rate - Afr Amer 62 mL/min (>60); Estimated Creatinine Clearance 44.67 ml/min; Globulin 3.5 g/dL (2.2-4.2); Glucose 106 mg/dL (74-106); High Density Lipoprotein 33 mg/dL; Potassium 3.9 mmol/L (3.5-5.1); Protein, Total 6.2 g/dL (6.4-8.2); Sodium Level 135 mmol/L (136-145); Triglycerides 75 mg/dL; Very Low Density Lipoprotein 15 mg/dL (5-40)
[2021-06-15 07:06] VITALS: PULSE 57
[2021-06-15] MEDS: Aspirin 81 MG TAB.CHEW PO (08:35)
[2021-06-15] MEDS: amLODIPine 10 MG Tablet PO (08:36)
[2021-06-15] MEDS: Pantoprazole Sodium 40 MG Tablet PO (08:36)
[2021-06-15] MEDS: Losartan Potassium 100 MG Tablet PO (08:36)
[2021-06-15 08:38] VITALS: BP 150/71; PULSE 65; RESP 18; TEMP 37.5; O2SAT 96
--- NOTE | 2021-06-15 11:25 | PCM.DC ---
Discharge Instructions Diet Discharge Diet: No restrictions Activity Discharge Activity: Return to Normal Activity Weight Bearing Status: Weight bearing as tolerated Dressing / Incision Call your doctor if you observe: Fever of 101 or Higher, Numbness or Tingling, Shortness of breath, Dizziness, Chest pain, Increased palpitations (irregular heartbeat) and Calf discomfort Follow Up Care Please Follow Up With: Primary care provider When: Within the next two weeks. Test Results: Test results from this visit will be discussed in further detail at your follow-up appointment, if applicable. Discharge Plan Admission Admit Date/Time: 06/14/21 10:37 Primary Reason for Your Visit: Dizzyness and near syncope Attending Provider: Julisa Velazquez Primary Care Provider: Antonio Ramírez Discharge Orders/Prescriptions Prescriptions: New meclizine 12.5 mg tablet 12.5 mg PO TID PRN (Reason: dizziness) Qty: 21 RF: 0 Continued terazosin 10 mg Tablet 10 mg PO QHS RF: 0 amlodipine 10 mg Tablet 10 mg PO DAILY RF: 0 pantoprazole 40 mg Tablet,Delayed Release (Dr/Ec) 40 mg PO DAILY RF: 0 pravastatin 20 mg Tablet 20 mg PO QHS RF: 0 losartan 100 mg Tablet 100 mg PO DAILY RF: 0 Referrals / Follow Up: Antonio Ramírez MD [Primary Care Provider] - Within 2 Weeks Disposition Disposition (needs filled in before D/C Order can be placed): Home, Self Care
[2021-06-15 11:54] VITALS: O2SAT 95
--- NOTE | 2021-06-15 13:56 | PCM.DC.SUM ---
Documented by User: Kelvin CHRISTOPHER 06/15/21 14:08 Providers Date of Admission: 06/14/21 Primary Care Physician: Dr. Antonio Ramírez MD Reason For Visit: DIZZINESS Diagnosis Discharge Diagnosis (1) Near syncope: Status: Resolved Code(s): R55 - Syncope and collapse (2) Dizziness: Status: Resolved Code(s): R42 - Dizziness and giddiness Medications at Discharge Home Medications amlodipine 10 mg PO DAILY 06/14/21 losartan 100 mg PO DAILY 06/14/21 pantoprazole 40 mg PO DAILY 06/14/21 pravastatin 20 mg PO QHS 06/14/21 terazosin 10 mg PO QHS 06/14/21 meclizine 12.5 mg PO TID PRN #21 tab 06/15/21 Hospital Course Procedures 2-D Echocardiogram and Transthoracic echo Summary of Care Provided Minutes Spent on Discharge: 35 Hospital Course: Disposition: Patient to discharge home and follow-up with primary care provider as an outpatient. 1) strokelike symptoms Patient was admitted on 06/14/2021 after exhibiting dizziness and having a near syncopal episode. Patient did not complain nor did he demonstrate any focal neurological deficits throughout his admission. Appropriate stroke imaging was obtained and was to include brain CT, brain MRI, head/neck MRA, all of which were negative for any evidence of acute ischemia, infarction or stenosis. Echocardiogram was obtained and demonstrated an estimated EF of 50 to 55% with grade 1 diastolic dysfunction. There was no prior study to compare to. On my evaluation of patient, patient did endorse that for the past year or 2 he has been experiencing nonspecific fatigue, weakness and dizziness when he overexerts himself. Patient was advised that he should continue doing his activities however monitor his fatigue more carefully. Patient was offered to meet with an outpatient neurologist for appropriate vertigo work-up, to which he declined and preferred to meet with his primary care provider. Patient is to follow-up with Dr. Ramírez within the next 2 weeks. Patient was given meclizine 12.5 mg p.o. 3 times daily as needed for 1 week. 2) HTN Patient's blood pressure has not been elevated throughout admission and is not within goal. Patient reports that while his blood pressure is elevated this is actually an improvement from prior history. Patient reports working with Dr. Ramírez on managing his blood pressure and would prefer to meet with him for any alterations in his hypertensive regimen. Home prescriptions of amlodipine and losartan were continued and patient will meet with Dr. Ramírez within the next 2 weeks as above. Patient seen by Kelvin Fish PA-C, under the supervision of Dr. Velazquez. Physical Exam Narrative Patient is a 75-year-old male comfortably resting in her chair, alert and orient x3. Patient reports that dizziness for admission has resolved, denies any other events of syncope or near syncope. Patient denies development of any new symptoms overnight and does not appear to be in acute distress. Const alert, oriented x3 and no apparent distress HEENT normocephalic, head/scalp atraumatic, hearing grossly normal bilaterally and moist oral mucous membranes Eyes PERRL, EOMs intact bilaterally and conjunctivae normal Neck no lymphadenopathy, supple and no JVD Resp normal respiratory effort, no retractions, no use of accessory muscles and clear to auscultation bilaterally Cardio regular rate, regular rhythm, no murmurs and no JVD GI normal to inspection, nondistended, normoactive bowel sounds, soft to palpation and non-tender Extremity normal to inspection, full ROM and no clubbing, cyanosis or edema Skin no rashes or lesions noted, no wounds and skin turgor normal Neuro CN's II-XII intact bilaterally Psych affect normal Weight / BMI Weight Weight: 225 lb Body Mass Index (BMI) 32.3 ABG / Lab / Microbiology Data Result Diagrams: 06/15/21 05:28 06/15/21 05:28 Laboratory: Laboratory Results - last 24 hr 06/14/21 08:32: POC Glucose 233 H 06/14/21 14:30: COVID-19 ([facility]) Not Detected 06/15/21 05:28: WBC 5.6, RBC 3.88 L, Hgb 11.1 L, Hct 33.5 L, MCV 86.3, MCH 28.6, MCHC 33.1, RDW Std Deviation 41.7, RDW Coeff of Yessi 13.4, Plt Count 80 L, MPV 11.0, Immature Gran % (Auto) 0.400, Neut % (Auto) 54.9, Lymph % (Auto) 35.7, [place] % (Auto) 7.3, Eos % (Auto) 1.3, Baso % (Auto) 0.4, Absolute Neuts (auto) 3.1, Absolute Lymphs (auto) 1.99, Nucleated RBC % 0 06/15/21 05:28: Sodium 135 L, Potassium 3.9, Chloride 103, Carbon Dioxide 27.0, Anion Gap 5, BUN 16, Creatinine 1.43 H, Estim Creat Clear Calc 44.67, Est GFR (MDRD) Af Amer 62, Est GFR (MDRD) Non-Af 51 L, BUN/Creatinine Ratio 11.2, Glucose 106, Calcium 8.4 L, Total Bilirubin 1.10 H, AST 12 L, ALT 12 L, Alkaline Phosphatase 72, Total Protein 6.2 L, Albumin 2.7 L, Globulin 3.5, Albumin/Globulin Ratio 0.8 L, Triglycerides 75, Cholesterol 110, LDL Cholesterol 62, VLDL Cholesterol 15, HDL Cholesterol 33 L Microbiology: Microbiology 06/14/21 08:50 Nasal Secretion SARS-CoV-2 Antigen (Rapid) - Final Radiography Diagnostic Testing: Radiology Impression Brain MRI 06/14/21 11:49 IMPRESSION: 1. There are mild involutional changes and chronic microvascular deep white matter disease. 2. No intracranial mass, hemorrhage, or acute territorial infarct. 3. No radiographically significant sinus disease. Electronically Signed: Jovanny Elias MD at 17:22 EST Tel , Service support , Neck MRA 06/14/21 11:49 IMPRESSION: Normal bilateral cervical carotid and vertebral arteries. Electronically Signed: Jovanny Cross MD at 17:11 EST Tel , Service support , Echocardiogram 06/14/21 11:51 Interpretation Summary The estimated ejection fraction is 50-55 %. Grade # I Diastolic dysfunction Mild MR Mild TR, RVSP calculated 41 mmhg No prior echo to compare Ordering Physician: Julisa Velazquez Referring Physician: Antonio Ramírez Performed By: Adriana Vicente, RDCS, RVT Head MRA 06/14/21 11:51 IMPRESSION: 1. Normal MRA appearance of the internal carotid arteries, anterior and middle cerebral arteries bilaterally. 2. There is a dominant right vertebral artery and a short segment moderate narrowing involving the V4 segment of the left vertebral artery. No evidence of occlusion. 3. No other evidence of stenosis occlusion or filling defects involving the intracranial circulation. No evidence of LVO. 4. No aneurysmal dilatation noted. Electronically Signed: Jovanny Elias MD at 17:31 EST Tel , Service support , D/C Instructions Discharge Diet: No restrictions Weight Bearing Status: Weight bearing as tolerated Call your doctor if you observe: Fever of 101 or Higher, Numbness or Tingling, Shortness of breath, Dizziness, Chest pain, Increased palpitations (irregular heartbeat) and Calf discomfort Please Follow Up With: Primary care provider When: Within the next two weeks. Meaningful Use Info Meaningful Use Diagnoses (Choose all that apply): None applicable Discharge Plan Admission Admit Date/Time: 06/14/21 10:37 Primary Reason for Your Visit: Dizzyness and near syncope Attending Provider: Julisa Velazquez Primary Care Provider: Antonio Ramírez Discharge Orders/Prescriptions Prescriptions: New meclizine 12.5 mg tablet 12.5 mg PO TID PRN (Reason: dizziness) Qty: 21 RF: 0 Continued terazosin 10 mg Tablet 10 mg PO QHS RF: 0 amlodipine 10 mg Tablet 10 mg PO DAILY RF: 0 pantoprazole 40 mg Tablet,Delayed Release (Dr/Ec) 40 mg PO DAILY RF: 0 pravastatin 20 mg Tablet 20 mg PO QHS RF: 0 losartan 100 mg Tablet 100 mg PO DAILY RF: 0 Referrals / Follow Up: Antonio Ramírez MD [Primary Care Provider] - Within 2 Weeks Disposition Disposition (needs filled in before D/C Order can be placed): Home, Self Care Documented by User: Dr. Julisa Velazquez MD 06/16/21 15:04 Providers Date of Admission: 06/14/21 Date of Discharge: 06/15/21 Reason For Visit: DIZZINESS Diagnosis Discharge Diagnosis (1) Near syncope: Status: Resolved Code(s): R55 - Syncope and collapse (2) Dizziness: Status: Resolved Code(s): R42 - Dizziness and giddiness Medications at Discharge Home Medications amlodipine 10 mg PO DAILY 06/14/21 losartan 100 mg PO DAILY 06/14/21 pantoprazole 40 mg PO DAILY 06/14/21 pravastatin 20 mg PO QHS 06/14/21 terazosin 10 mg PO QHS 06/14/21 meclizine 12.5 mg PO TID PRN #21 tab 06/15/21 ABG / Lab / Microbiology Data Result Diagrams: 06/15/21 05:28 06/15/21 05:28 Discharge Plan Admission Admit Date/Time: 06/14/21 10:37 Primary Reason for Your Visit: Dizzyness and near syncope Attending Provider: Julisa Velazquez Primary Care Provider: Antonio Ramírez Discharge Orders/Prescriptions Prescriptions: New meclizine 12.5 mg tablet 12.5 mg PO TID PRN (Reason: dizziness) Qty: 21 RF: 0 Continued terazosin 10 mg Tablet 10 mg PO QHS RF: 0 amlodipine 10 mg Tablet 10 mg PO DAILY RF: 0 pantoprazole 40 mg Tablet,Delayed Release (Dr/Ec) 40 mg PO DAILY RF: 0 pravastatin 20 mg Tablet 20 mg PO QHS RF: 0 losartan 100 mg Tablet 100 mg PO DAILY RF: 0 Referrals / Follow Up: Antonio Ramírez MD [Primary Care Provider] - Within 2 Weeks Disposition Disposition (needs filled in before D/C Order can be placed): Home, Self Care Charges/Coding Addendum Addendum: This patient was seen in conjunction with CANDI Fink. I have independently interviewed and examined the patient and reviewed pertinent historical, laboratory, and other data. Please refer to CANDI Fink's note for his patient's presentation, findings, and recommendations. I have reviewed and his note and concur with his documentation 75-year-old male with past medical history of hypertension who comes in with complaints of dizziness ongoing for 1 day. Patient woke up today with dizziness. He felt unsteady. Denied any ringing in his ears. Denied any history of stroke. He got nauseous when he got here to the ED. Vitals showed uncontrolled blood pressure, 179/82. His admitting blood work was unremarkable except for creatinine 1.59. Unsure of his previous baseline MRI brain as well as MRA head and neck was unremarkable for acute stroke. Patient was monitored overnight in PCU. No acute events overnight. He felt improved. Discharged to follow-up with his primary care doctor within 1 week. Visit Charges Inpatient E&M: 57053 Disch Hosp
== END 2021-06-15 13:45 | disposition home or self-care (01) ==
LOC: ED 10:41 → PCU 11:14
PROVIDERS: Physician Assistant; Admitting Provider Internal Medicine; Emergency Provider Emergency Medicine; PCP Internal Medicine; Visit Provider Internal Medicine
DX: R55 Syncope and collapse (principal); R42 Dizziness and giddiness; R11.2 Nausea with vomiting, unspecified; R26.81 Unsteadiness on feet; K21.9 Gastro-esophageal reflux disease without esophagitis; E78.5 Hyperlipidemia, unspecified; N40.0 Benign prostatic hyperplasia without lower urinary tract symptoms; I10 Essential (primary) hypertension; Z79.899 Other long term (current) drug therapy; Z20.822 Contact with and (suspected) exposure to COVID-19
CPT/HCPCS: 36415; 70450; 70544; 70549; 70551; 71045; 80053; 80061; 81001; 82962; 84443; 84484; 85025; 87426; 87635; 92523; 92610; 93005; 93306; 94762; 96374; 96376; 97162; 97802; 99218; 99285; A9575; J7030; U0005; A4216; G0378; J2405; U0003